=== PATIENT | female | born 1990 | race African-American/Black ===

== ENCOUNTER 2017-10-12 16:54 | Emergency (ER) | payer BC, OTHER ==
[~2017-10-12] VITALS: Ht 170.2 cm; Wt 65.8 kg
[~2017-10-12 16:54] MED LIST: ACETAMINOPHEN-1 EAC1 PO; MUCINEX600 MG PO; ORTHO EVRA PAT1 EACH TD; PREDNISONE 20 M20 M1 PO; PROVENTIL IH
[2017-10-12] MEDS ORDERED: ZOFRAN ODT4 M1 PO (17:54)
[2017-10-12] MEDS ORDERED: MOBIC15 MG PO (17:54)
== END 2017-10-12 18:10 | disposition home or self-care (01) ==
LOC: ER 16:54
DX: S06.0X9A Concussion with loss of consciousness of unspecified duration, initial encounter (principal); M25.511 Pain in right shoulder; M25.552 Pain in left hip; M25.551 Pain in right hip; M25.562 Pain in left knee; M25.561 Pain in right knee; M25.572 Pain in left ankle and joints of left foot; M25.571 Pain in right ankle and joints of right foot; J45.909 Unspecified asthma, uncomplicated; W01.0XXA Fall on same level from slipping, tripping and stumbling without subsequent striking against object, initial encounter; Y93.89 Activity, other specified; Y92.89 Other specified places as the place of occurrence of the external cause; Y99.8 Other external cause status

== ENCOUNTER 2019-06-13 14:19 | Emergency (ER) | payer OTHER ==
[~2019-06-13] VITALS: Ht 162.6 cm; Wt 77.1 kg
[~2019-06-13 14:19] MED LIST changes: +MOBIC15 MG PO; +ZOFRAN ODT4 M1 PO
[2019-06-13 16:37] LABS: ABSOLUTE NEUTROPHILS 2.4 thou/uL (1.4-8.2); BASOPHILS 1.3 % (0.0-2.0); EOSINOPHILS 1.7 % (0.0-3.0); HEMATOCRIT 40.6 % (37.0-47.0); HEMOGLOBIN 13.7 gm/dL (12.0-15.0); LYMPHOCYTES 40.5 % (24.0-44.0); MCH 30.4 pg (26.0-34.0); MCHC 33.7 g/dL (28.0-37.0); MCV 90.3 fL (80.0-100.0); MONOCYTES 8.8 % (1.0-8.0); PLATELET COUNT 296 thou/uL (150-400); POLYS 47.7 % (36.0-66.0); RDW 12.8 % (10.5-14.5); WBC 5.1 thou/uL (4.0-11.0)
[2019-06-13 16:52] LABS: ANION GAP 4 mmol/L (7-16); BUN 10 mg/dL (7-18); CALCIUM 8.9 mg/dL (8.5-10.1); CHLORIDE 104 mmol/L (98-107); CO2 31 mmol/L (21-32); CREATININE 0.8 mg/dL (0.6-1.0); GLUCOSE 67 mg/dL (74-106); POTASSIUM 4.2 mmol/L (3.5-5.1); SODIUM 139 mmol/L (136-145)
[2019-06-13 17:00] LABS: TROPONIN-I <0.06 ng/mL (<0.06)
[2019-06-13] MEDS ORDERED: CLARITIN-D 121 EAC1 PO (17:51)
[2019-06-13] MEDS ORDERED: FLONASE 0.05%50 MCG NARES (17:51)
[2019-06-13] MEDS ORDERED: PREDNISONE 20 M20 MG PO (17:51)
[2019-06-13] MEDS ORDERED: PROAIR HFA8.5 GM INH (17:51)
[2019-06-13 18:11] VITALS: BP 116/77
--- NOTE | 2019-06-14 09:24 | EKG ---
[address] [address] ELECTROCARDIOGRAM REPORT Name: APURVA PARRA Room #: [facility] Sulma#: [id number] Admission: 06/13/19 Attend Phys: Discharge: 06/13/19 Date of : [birth year] Report #: [id number] THIS REPORT FOR: //name// [facility] ED Test Date: 2019-06-13 Test Time: 14:46:29 Pat Name: APURVA PARRA Department: Room: Gender: F Telecommunication Operator: PRESLEY : 1990 Requested By: Claudette Avalos Order Number: [id number] MD: Rick Pino Measurements Intervals [place] Rate: 83 P: 71 NE: 161 QRS: 30 QRSD: 85 T: 35 QT: 351 QTc: 413 Interpretive Statements Sinus rhythm No significant abnormality No previous ECG available for comparison Electronically Signed On 06-14-2019 9:24:07 CDT by Rick Pino [email or web address] <ELECTRONICALLY SIGNED> By: Rick Pino MD, [facility] 06/14/19 0924 1446 1446 Rick Pino MD, FACC /EPI
== END 2019-06-13 18:12 | disposition home or self-care (01) ==
LOC: ER 14:19
PROVIDERS: Nurse Practitioner Family
DX: R06.00 Dyspnea, unspecified (principal); R09.81 Nasal congestion; J45.909 Unspecified asthma, uncomplicated